=== PATIENT | female | born 1955 | race Caucasian/White ===

== ENCOUNTER 2016-05-30 11:53 | Outpatient (CLI) ==
[2016-05-30 12:54] LABS: FLU INTERNAL QC INTERNAL QC VALID; RAPID FLU A NEGATIVE (NEGATIVE); RAPID FLU B NEGATIVE (NEGATIVE)
== END 2016-05-30 11:54 | disposition home or self-care (01) ==
LOC: LAB 11:53
PROVIDERS: ATTEND Nurse Practitioner Family
DX: J02.9 Acute pharyngitis, unspecified (principal); R05 Cough
CPT/HCPCS: 87651; 87804; 87880

== ENCOUNTER 2021-05-07 11:15 | Inpatient (IN) ==
--- NOTE | 2021-05-07 12:22 | ED.PDOC ---
General ED Provider: Dr. TRICE ELLIS Chief Complaint: Weakness Stated Complaint: altered mental status confusion and disorientation Time Seen by Provider: 05/07/21 12:05 Mode of Arrival: Walk-In Information Source: Patient and Family Exam Limitations: Clinical condition and Dementia Primary Care Provider: SULMA GIRON PA-C Nursing and Triage Documentation Reviewed and Agree: Yes Does patient meet sepsis criteria?: No System Inflammatory Response Syndrome: Acutely Altered Mental Status Sepsis Protocol: For patient's 13 years and over: Temp is 96.8 and below OR 101 and greater Pulse >90 BPM Resp >20/minute Acutely Altered Mental Status Are patient's symptoms suggestive of a new infection, such as: -Pneumonia -Skin, Soft Tissue -Endocarditis -UTI -Bone, Joint Infection -Implantable Device -Acute Abdominal Infection -Wound Infection -Meningitis -Blood Stream Catheter Infection -Unknown Neurological Complaint Exam Altered Mental Status Complaint/Exam Current Mental Status: Confusion Last Known Well: yesterday Onset: Sudden Duration: 4 hrs Symptoms Are: Still present (Improving per ) Timing: Constant Episodes Lasting: Minutes Initial Severity: Moderate Current Severity: Mild Eye Deviation Present: No Character: Reports Confusion Aggravating: Reports None Alleviating: Reports None Associated Signs and Symptoms: Reports Weakness; Denies Dizziness, Headache, Fever, Illness, Nuchal rigidity, Seizure, Nausea, Vomiting, Recently depressed or Trauma Related History: Reports Similar episode Cardiac Risk Factors: Reports None CVA Risk Factors: Reports Diabetes, Hypertension, PVD and Valvular Heart Disease Carotid Bruit Present: No Nystagmus Present: No Gag Reflex Present: Yes Meningeal Signs Positive: No Focal Weakness: Present None Focal Sensory Loss: Present None Gait: Unable [id number]: Normal Findings Babinski Sign: Negative Right and Negative Left Heel to Toe Normal: Yes Signs of Injury: Present Normal findings Thrombolytics Considered: No Differential Diagnoses: Hypoxia, Intracranial Bleed, Metabolic Disorder, Overdose, Sepsis and TIA Review of Systems Review Of Systems Constitutional: Reports Malaise and Weakness Eyes: Reports No symptoms Ears, Nose, Mouth, Throat: Reports No symptoms Respiratory: Reports Cough, Short of air and Wheezing Cardiac: Reports No symptoms GI: Reports No symptoms : Reports No symptoms Musculoskeletal: Reports No symptoms Skin: Reports No symptoms Neurological: Reports Anxiety and Headache Endocrine: Reports No symptoms All Other Systems: Reviewed and Negative [facility] Medical History Abnormal x-ray Arthritis Chronic bronchitis Fall Left thigh pain Lumbar radicular pain Tobacco dependence with current use Family History SISTER No problems noted. Mother No problems noted. Other Arthritis Breast cancer Pancreatic cancer Social History (Updated 05/07/21 @ 19:07 by JYOTI JJ) Smoking and tobacco status: Current some day smoker Tobacco type: cigarettes Smoking packs per day: 0.5 Years smoked: 46 Passive smoking exposure: No Quit status: not considering quitting Second hand smoke exposure: No Alcohol intake: never Substance use type: does not use Household members: spouse Marital status: M Lives independently: Yes Number of children: 1 Number of grandchildren: 3 Highest education level completed: 10th grade halfway: No Current occupational status: retired Do you think of yourself as: straight/heterosexual Current gender identity: female Seatbelt use: always Drives intoxicated or rides with intoxicated stock driver: No Water heater temperature set < 120 degrees: Yes Working smoke detector in home: Yes Fire extinguisher in home: Yes Carbon monoxide detector in home: Yes Surgical History (Updated 05/07/21 @ 19:05 by JYOTI JJ) History of hysterectomy Status post hysterectomy Female Reproductive History Menstrual Hx Hysterectomy: Yes Physical Exam Physical Exam Appearance: Reports Ill-appearing and Thin Ill-appearing: Severe Pain Distress: Mild Eyes: Reports CARRIE, EOMI, Conjunctiva clear, Conjunctiva pale and Right pupil size (PERL_A) ENT: Reports Ears normal, Oropharynx normal and TMs Occluded Neck: Supple Respiratory: Reports Airway patent, Breath sounds clear, Breath sounds diminished and Wheezes Cardiovascular: Reports RRR and No murmur GI/: Reports Soft, Nontender and No masses Musculoskeletal: Reports Normal strength, ROM intact, No edema and No calf tenderness Skin: Reports Warm, Dry and Normal color Neurological: Reports Sensation intact, Motor intact, Reflexes intact, Cranial nerves intact, Alert and Oriented Psychiatric: Reports Affect appropriate and Mood appropriate Critical Care Note Critical Care Note Total Critical Care Time (mins): 60 Course Course Hematology/Chemistry: 05/08/21 04:43 05/08/21 04:43 Orders, Labs, Meds: Lab Review 05/07/21 05/07/21 05/07/21 13:00 13:03 13:24 WBC 20.36 H RBC 3.99 L Hgb 12.4 Hct 35.8 L MCV 89.7 MCH 31.1 H MCHC 34.6 RDW Coeff of Mejia 14.7 Plt Count 222 Immature Gran % (Auto) 0.4 Neut % (Auto) 91.4 H Lymph % (Auto) 3.[address] [place] % (Auto) 3.9 Eos % (Auto) 0.0 Baso % (Auto) 0.5 Neut # (Auto) 18.6 H Lymph # (Auto) 0.8 [facility] # (Auto) 0.8 Eos # (Auto) 0.0 Baso # (Auto) 0.1 Immature Gran # (Auto) 0.1 PT INR APTT Sodium Potassium Chloride Carbon Dioxide Anion Gap BUN Creatinine Estimated GFR (MDRD) BUN/Creatinine Ratio Glucose Lactic Acid Uric Acid Calcium Magnesium Total Bilirubin AST ALT Alkaline Phosphatase Total Creatine Kinase Troponin I Total Protein Albumin Globulin Albumin/Globulin Ratio Procalcitonin D-Dimer Urine Color Urine Clarity Urine pH Ur Specific [place] Urine Protein Urine Glucose (UA) Urine Ketones Urine Blood Urine Nitrite Urine Bilirubin Urine Urobilinogen Ur Leukocyte Esterase Urine Microscopic RBC Urine Microscopic WBC Ur Squamous Epith Cells Urine Bacteria Urine Opiates Screen Ur Oxycodone Screen Urine Methadone Screen Ur Propoxyphene Screen Ur Barbiturates Screen U Tricyclic Antidepress Ur Phencyclidine Scrn Ur Amphetamine Screen U Methamphetamines Scrn U Benzodiazepines Scrn Urine Cocaine Screen U Cannabinoids Screen Adenovirus (PCR) Not detected B. pertussis DNA (PCR) Not detected B.parapertussis DNA PCR Not detected C. pneumoniae DNA (PCR) Not detected Coronavirus OC43 (PCR) Not detected Coronavirus HKU1 (PCR) Not detected Coronavirus 229E (PCR) Not detected Coronavirus NL63 (PCR) Not detected Human Metapneumovir PCR Not detected Influenza Type A (PCR) Not detected Influ A Molecular Assay Negative by naat Influenza B (RT-PCR) Not detected Influ B Molecular Assay Negative by naat M. pneumoniae (PCR) Not detected Parainfluenza 1 (PCR) Not detected Parainfluenza 2 (PCR) Not detected Parainfluenza 3 (PCR) Not detected Parainfluenza 4 (PCR) Not detected RSV (PCR) Not detected Entero/Rhino (PCR) Not detected SARS-CoV-2 (PCR) Not detected 0305/07/21 05/07/21 13:24 13:24 13:24 WBC RBC Hgb Hct MCV MCH MCHC RDW Coeff of Mejia Plt Count Immature Gran % (Auto) Neut % (Auto) Lymph % (Auto) [facility] % (Auto) Eos % (Auto) Baso % (Auto) Neut # (Auto) Lymph # (Auto) [facility] # (Auto) Eos # (Auto) Baso # (Auto) Immature Gran # (Auto) PT 11.5 H INR 1.12 APTT 30.1 Sodium 131.8 L Potassium 3.84 Chloride 98.7 Carbon Dioxide 27.3 Anion Gap 9.64 BUN 10.3 Creatinine 0.61 Estimated GFR (MDRD) 99.00 BUN/Creatinine Ratio 16.88 Glucose 139.8 H Lactic Acid Uric Acid 3.33 Calcium 9.12 Magnesium 1.96 Total Bilirubin 0.51 AST 15.9 ALT 11.2 Alkaline Phosphatase 86.9 Total Creatine Kinase 73.9 Troponin I 0.046 Total Protein 7.06 Albumin 4.13 Globulin 2.93 Albumin/Globulin Ratio 1.40 Procalcitonin D-Dimer 1167.86 H Urine Color Urine Clarity Urine pH Ur Specific [place] Urine Protein Urine Glucose (UA) Urine Ketones Urine Blood Urine Nitrite Urine Bilirubin Urine Urobilinogen Ur Leukocyte Esterase Urine Microscopic RBC Urine Microscopic WBC Ur Squamous Epith Cells Urine Bacteria Urine Opiates Screen Ur Oxycodone Screen Urine Methadone Screen Ur Propoxyphene Screen Ur Barbiturates Screen U Tricyclic Antidepress Ur Phencyclidine Scrn Ur Amphetamine Screen U Methamphetamines Scrn U Benzodiazepines Scrn Urine Cocaine Screen U Cannabinoids Screen Adenovirus (PCR) B. pertussis DNA (PCR) B.parapertussis DNA PCR C. pneumoniae DNA (PCR) Coronavirus OC43 (PCR) Coronavirus HKU1 (PCR) Coronavirus 229E (PCR) Coronavirus NL63 (PCR) Human Metapneumovir PCR Influenza Type A (PCR) Influ A Molecular Assay Influenza B (RT-PCR) Influ B Molecular Assay M. pneumoniae (PCR) Parainfluenza 1 (PCR) Parainfluenza 2 (PCR) Parainfluenza 3 (PCR) Parainfluenza 4 (PCR) RSV (PCR) Entero/Rhino (PCR) SARS-CoV-2 (PCR) 05/07/21 05/07/21 05/07/21 13:24 13:24 14:20 WBC RBC Hgb Hct MCV MCH MCHC RDW Coeff of Mejia Plt Count Immature Gran % (Auto) Neut % (Auto) Lymph % (Auto) [facility] % (Auto) Eos % (Auto) Baso % (Auto) Neut # (Auto) Lymph # (Auto) [facility] # (Auto) Eos # (Auto) Baso # (Auto) Immature Gran # (Auto) PT INR APTT Sodium Potassium Chloride Carbon Dioxide Anion Gap BUN Creatinine Estimated GFR (MDRD) BUN/Creatinine Ratio Glucose Lactic Acid 1.25 Uric Acid Calcium Magnesium Total Bilirubin AST ALT Alkaline Phosphatase Total Creatine Kinase Troponin I Total Protein Albumin Globulin Albumin/Globulin Ratio Procalcitonin 0.35 H D-Dimer Urine Color Yellow Urine Clarity Turbid Urine pH 8.0 Ur Specific [place] 1.020 Urine Protein Negative Urine Glucose (UA) Negative Urine Ketones Negative Urine Blood Trace-intact H Urine Nitrite Negative Urine Bilirubin Negative Urine Urobilinogen 1.0 H Ur Leukocyte Esterase Trace H Urine Microscopic RBC 0-2 Urine Microscopic WBC 5-10 Ur Squamous Epith Cells Not present Urine Bacteria 4+ Urine Opiates Screen Ur Oxycodone Screen Urine Methadone Screen Ur Propoxyphene Screen Ur Barbiturates Screen U Tricyclic Antidepress Ur Phencyclidine Scrn Ur Amphetamine Screen U Methamphetamines Scrn U Benzodiazepines Scrn Urine Cocaine Screen U Cannabinoids Screen Adenovirus (PCR) B. pertussis DNA (PCR) B.parapertussis DNA PCR C. pneumoniae DNA (PCR) Coronavirus OC43 (PCR) Coronavirus HKU1 (PCR) Coronavirus 229E (PCR) Coronavirus NL63 (PCR) Human Metapneumovir PCR Influenza Type A (PCR) Influ A Molecular Assay Influenza B (RT-PCR) Influ B Molecular Assay M. pneumoniae (PCR) Parainfluenza 1 (PCR) Parainfluenza 2 (PCR) Parainfluenza 3 (PCR) Parainfluenza 4 (PCR) RSV (PCR) Entero/Rhino (PCR) SARS-CoV-2 (PCR) 05/07/21 14:20 WBC RBC Hgb Hct MCV MCH MCHC RDW Coeff of Mejia Plt Count Immature Gran % (Auto) Neut % (Auto) Lymph % (Auto) [facility] % (Auto) Eos % (Auto) Baso % (Auto) Neut # (Auto) Lymph # (Auto) [facility] # (Auto) Eos # (Auto) Baso # (Auto) Immature Gran # (Auto) PT INR APTT Sodium Potassium Chloride Carbon Dioxide Anion Gap BUN Creatinine Estimated GFR (MDRD) BUN/Creatinine Ratio Glucose Lactic Acid Uric Acid Calcium Magnesium Total Bilirubin AST ALT Alkaline Phosphatase Total Creatine Kinase Troponin I Total Protein Albumin Globulin Albumin/Globulin Ratio Procalcitonin D-Dimer Urine Color Urine Clarity Urine pH Ur Specific [place] Urine Protein Urine Glucose (UA) Urine Ketones Urine Blood Urine Nitrite Urine Bilirubin Urine Urobilinogen Ur Leukocyte Esterase Urine Microscopic RBC Urine Microscopic WBC Ur Squamous Epith Cells Urine Bacteria Urine Opiates Screen Negative Ur Oxycodone Screen Negative Urine Methadone Screen Negative Ur Propoxyphene Screen Negative Ur Barbiturates Screen Negative U Tricyclic Antidepress Negative Ur Phencyclidine Scrn Negative Ur Amphetamine Screen Negative U Methamphetamines Scrn Negative U Benzodiazepines Scrn Negative Urine Cocaine Screen Negative U Cannabinoids Screen Negative Adenovirus (PCR) B. pertussis DNA (PCR) B.parapertussis DNA PCR C. pneumoniae DNA (PCR) Coronavirus OC43 (PCR) Coronavirus HKU1 (PCR) Coronavirus 229E (PCR) Coronavirus NL63 (PCR) Human Metapneumovir PCR Influenza Type A (PCR) Influ A Molecular Assay Influenza B (RT-PCR) Influ B Molecular Assay M. pneumoniae (PCR) Parainfluenza 1 (PCR) Parainfluenza 2 (PCR) Parainfluenza 3 (PCR) Parainfluenza 4 (PCR) RSV (PCR) Entero/Rhino (PCR) SARS-CoV-2 (PCR) Orders Category Date Time Status ADMIT PATIENT INPATIENT .TO MEDSURG (MONITORED BED) ADMISSION 05/07/21 17:36 Active EKG-(ED ONLY) Stat CARDIO 05/07/21 12:54 Completed NPO REMINDER: IMAGING ONCE CARE 05/07/21 14:42 Completed TELEMETRY MONITORING TELE CARE 05/07/21 17:36 Active IV [ED IV/MEDIPORT/POWERPORT] .ONCE EMERGENCY 05/07/21 12:55 Active BLOOD CULTURE (ED ONLY) Stat LAB 05/07/21 13:24 Results CBC W/ AUTO DIFF Stat LAB 05/07/21 13:24 Completed CMP [COMPREHENSIVE METABOLIC PANEL] Stat LAB 05/07/21 13:24 Completed CPK [CREATINE KINASE] Stat LAB 05/07/21 13:24 Completed D-DIMER Stat LAB 05/07/21 13:24 Completed FLU A & B MOLECULAR [FLU A/B MOLECULAR] Stat LAB 05/07/21 13:03 Completed LACTIC ACID Stat LAB 05/07/21 13:24 Completed MAGNESIUM Stat LAB 05/07/21 13:24 Completed PARTIAL THROMBOPLASTIN TIME Stat LAB 05/07/21 13:24 Completed PROCALCITONIN Stat LAB 05/07/21 13:24 Completed PT WITH INR Stat LAB 05/07/21 13:24 Completed RESPIRATORY PANEL 2.1 (PCR) Stat LAB 05/07/21 13:00 Completed TROPONIN I Stat LAB 05/07/21 13:24 Completed UA [URINALYSIS C & S IF INDICATED] Stat LAB 05/07/21 14:20 Completed URIC ACID Stat LAB 05/07/21 13:24 Completed URINE CULTURE Stat LAB 05/07/21 14:20 Results URINE DRUG SCREEN (RAPID FOR ED) [DRUG SCREEN, URINE, LAB 05/07/21 14:20 Completed RAPID] Stat 0.9 % Sodium Chloride [Saline Flush] MEDS 05/07/21 12:55 Discontinued 1 syr IVF PRN PRN Clindamycin Phosphate/D5w [Cleocin 300 mg/50 ml D5w] MEDS 05/07/21 21:00 Discontinued 300 mg in 50 ml IV Q6HR Clindamycin Phosphate/D5w [Cleocin 600 mg/50 ml D5w] MEDS 05/07/21 16:15 Discontinued 600 mg in 50 ml IV ONCE Dexamethasone Sod Phosphate [Decadron] MEDS 05/07/21 16:15 Discontinued 4 mg IVP ONCE ONE Dexamethasone Sod Phosphate [Decadron] MEDS 05/07/21 21:00 Active 4 mg IVP Q8HR Enoxaparin Sodium [Lovenox] MEDS 05/07/21 15:42 Discontinued 60 mg SUBCUT ONCE STA Gabapentin [Neurontin] MEDS 05/07/21 21:00 Active 200 mg PO TID Levothyroxine Sodium [Synthroid] MEDS 05/07/21 18:00 Discontinued 25 mcg PO DAILY Omeprazole [Prilosec] MEDS 05/07/21 21:00 Discontinued 20 mg PO BID Potassium Chloride [K-Dur] MEDS 05/07/21 18:00 Discontinued 20 meq PO DAILY Rivaroxaban [Xarelto] MEDS 05/08/21 09:00 Active 20 mg PO DAILY Rosuvastatin Calcium [Crestor] MEDS 05/07/21 18:00 Active 10 mg PO DAILY Sodium Chloride 0.9% [Sodium Chloride] 1,000 ml MEDS 05/07/21 17:[address] CHEST PE PROTOCOL Stat RADS 05/07/21 14:[address] CHEST W/O CONTRAST Stat RADS 05/07/21 12:[address] HEAD W/O CONTRAST Stat RADS 05/07/21 12:54 Completed U/S VENOUS SCAN RT LEG Stat RADS 05/07/21 14:43 Completed Medications Generic Name Dose Route Start Last Admin Trade Name Freq PRN Reason Stop Dose Admin Acetaminophen 650 mg 05/07/21 17:56 05/07/21 19:35 Acetaminophen 325 Mg Tablet PO 650 mg Q4H PRN Administration Fever >101 Dexamethasone Sodium Phosphate 4 mg 05/07/21 21:00 05/08/21 20:16 Dexamethasone Sod Phos 4 Mg/Ml Inj IVP 05/09/21 22:00 4 mg Q8HR MAULIK Administration Gabapentin 200 mg 05/07/21 21:00 05/08/21 20:15 Gabapentin 100 Mg Capsule PO 200 mg TID MAULIK Administration Clindamycin Phosphate 600 mg in 50 mls @ 75 mls/hr 05/08/21 08:00 05/08/21 20:15 Cleocin 600 Mg/50 Ml D5w IV 05/11/21 07:59 75 mls/hr Q8HR MAULIK Administration Insulin Human Regular 0 unit 05/08/21 11:24 05/08/21 20:21 Insulin Regular, Human 100 Unit/Ml (3ml) Vial SUBCUT 4 unit PRN PRN Administration Hyperglycemia Protocol Levothyroxine Sodium 25 mcg 05/08/21 08:00 05/08/21 08:25 Levothyroxine Sodium 25 Mcg Tablet PO 25 mcg QDAC MAULIK Administration Omeprazole 20 mg 05/08/21 08:00 05/08/21 17:05 Omeprazole 20 Mg Capsule.Dr PO 20 mg BIDAC MAULIK Administration Ondansetron HCl 4 mg 05/07/21 17:56 Ondansetron Hcl/Pf 4 Mg/2 Ml Sdv IVP Q6H PRN Nausea / Vomiting Rivaroxaban 20 mg 05/08/21 09:00 05/08/21 08:27 Rivaroxaban 10 Mg Tablet PO 20 mg DAILY MAULIK Administration Rosuvastatin Calcium 10 mg 05/07/21 18:00 05/08/21 08:26 Rosuvastatin Calcium 10 Mg Tablet PO 10 mg DAILY MAULIK Administration Sodium Chloride 1 syr 05/08/21 13:00 05/08/21 20:16 0.9% Sodium Chloride 10 Ml Disp.Syrin IVF 1 syr Q8HR MAULIK Administration Discontinued Medications Generic Name Dose Route Start Last Admin Trade Name Freq PRN Reason Stop Dose Admin Dexamethasone Sodium Phosphate 4 mg 05/07/21 16:15 05/07/21 17:05 Dexamethasone Sod Phos 4 Mg/Ml Inj IVP 05/07/21 16:16 4 mg ONCE ONE Administration Enoxaparin Sodium 60 mg 05/07/21 15:42 05/07/21 15:53 Enoxaparin Sodium 60 Mg/0.6 Ml Syr SUBCUT 05/07/21 15:43 60 mg ONCE STA Administration Clindamycin Phosphate 600 mg in 50 mls @ 75 mls/hr 05/07/21 16:15 05/07/21 17:05 Cleocin 600 Mg/50 Ml D5w IV 05/07/21 16:54 75 mls/hr ONCE ONE Administration Clindamycin Phosphate 300 mg in 50 mls @ 75 mls/hr 05/07/21 21:00 05/08/21 05:40 Cleocin 300 Mg/50 Ml D5w IV 05/10/21 20:59 75 mls/hr Q6HR MAULIK Administration Sodium Chloride 1,000 mls @ 125 mls/hr 05/07/21 17:48 05/07/21 20:43 Sodium Chloride IV 05/08/21 01:47 125 mls/hr ONCE ONE Administration Levothyroxine Sodium 25 mcg 05/07/21 18:00 05/07/21 19:31 Levothyroxine Sodium 25 Mcg Tablet PO 25 mcg DAILY MAULIK Administration Omeprazole 20 mg 05/07/21 21:00 05/07/21 20:41 Omeprazole 20 Mg Capsule.Dr PO 20 mg BID MAULIK Administration Potassium Chloride 20 meq 05/07/21 18:00 05/07/21 19:31 Potassium Chloride 20 Meq Tab PO 20 meq DAILY MAULIK Administration Potassium Chloride 20 meq 05/08/21 08:30 05/08/21 08:26 Potassium Chloride 20 Meq Tab PO 20 meq DAILYWM MAULIK Administration Sodium Chloride 1 syr 05/07/21 12:55 05/07/21 17:05 0.9% Sodium Chloride 10 Ml Disp.Syrin IVF 1 syr PRN PRN Administration To flush IV Vital Signs: Temp Pulse Resp BP Pulse Ox 05/07/21 11:16 99.2 F 105 H 20 131/72 93 L Discharge Plan Discharge Patient Disposition: ADMITTED INPATIENT Discharge Problem: Cellulitis of right thigh, Acute alteration in mental status, Type II diabetes mellitus, Pulmonary embolism ED Provider: TRICE ELLIS Condition: Good Physician Progress Note: []
[2021-05-07 13:29] LABS: BORDETELLA PARAPERTUSSIS (PCR) NOT DETECTED (NOT DETECT); BORDETELLA PERTUSSIS (PCR) NOT DETECTED (NOT DETECT); CHLAMYDIA PNEUMONIAE (PCR) NOT DETECTED (NOT DETECT); CORONAVIRUS 229E (PCR) NOT DETECTED (NOT DETECT); CORONAVIRUS HKU1 (PCR) NOT DETECTED (NOT DETECT); CORONAVIRUS NL63 (PCR) NOT DETECTED (NOT DETECT); CORONAVIRUS OC43 (PCR) NOT DETECTED (NOT DETECT); HUMAN METAPNEUMOVIRUS (PCR) NOT DETECTED (NOT DETECT); HUMAN RHINOVIRUS/ENTEROV (PCR) NOT DETECTED (NOT DETECT); INFLUENZA B (PCR) NOT DETECTED (NOT DETECT); MYCOPLASMA PNEUMONIAE (PCR) NOT DETECTED (NOT DETECT); PARAINFLUENZA VIRUS 1 (PCR) NOT DETECTED (NOT DETECT); PARAINFLUENZA VIRUS 2 (PCR) NOT DETECTED (NOT DETECT); PARAINFLUENZA VIRUS 3 (PCR) NOT DETECTED (NOT DETECT); PARAINFLUENZA VIRUS 4 (PCR) NOT DETECTED (NOT DETECT); RESPIRATORY SYNCYTIAL V (PCR) NOT DETECTED (NOT DETECT); SARS_COV_2 (PCR) NOT DETECTED (NOT DETECT)
[2021-05-07 13:30] LABS: BASOPHILS # (AUTO) 0.1 K/uL (0-0.2); BASOPHILS % (AUTO) 0.5 % (0.0-3.0); HEMATOCRIT 35.8 % (37.0-47.0); HEMOGLOBIN 12.4 g/dl (12.0-16.0); IMMATURE GRANULOCYTE # (AUTO) 0.1 (0.0-1.0); IMMATURE GRANULOCYTE % (AUTO) 0.4 % (0.0-5.0); LYMPHOCYTES # (AUTO) 0.8 K/uL (0.60-3.4); LYMPHOCYTES % (AUTO) 3.8 (10.0-50.0); MEAN CORPUSCULAR HEMOGLOBIN 31.1 pg (27.0-31.0); MEAN CORPUSCULAR HGB CONC 34.6 (31.8-35.4); MEAN CORPUSCULAR VOLUME 89.7 fl (81.0-99.0); MONOCYTES # (AUTO) 0.8 K/uL (0.4-2.0); MONOCYTES % (AUTO) 3.9 (0-10); NEUTROPHILS # (AUTO) 18.6 K/ul (2.0-6.9); NEUTROPHILS % (AUTO) 91.4 % (42.2-75.2); PLATELET COUNT 222 10^3/uL (140-440); RDW COEFFICIENT OF VARIATION 14.7 % (11.6-14.8); RED BLOOD COUNT 3.99 10^6/ul (4.20-5.40); WHITE BLOOD COUNT 20.36 K/ul (4.6-10.2)
[2021-05-07 13:46] LABS: MOLECULAR FLU A NEGATIVE BY NAAT (NEGATIVE); MOLECULAR FLU B NEGATIVE BY NAAT (NEGATIVE)
[2021-05-07 13:48] LABS: ALANINE AMINOTRANSFERASE 11.2 U/L (0-35); ALBUMIN 4.13 g/dL (3.5-5.0); ALKALINE PHOSPHATASE 86.9 U/L (53-141); ASPARTATE AMINO TRANSFERASE 15.9 U/L (14-36); BILIRUBIN,TOTAL 0.51 mg/dL (0.2-1.3); BLOOD UREA NITROGEN 10.3 mg/dL (7-17); CALCIUM 9.12 mg/dL (8.4-10.2); CARBON DIOXIDE 27.3 mmol/L (22-30.0); CHLORIDE 98.7 mmol/L (98-107); CREATINE KINASE 73.9 U/L (30-135); CREATININE 0.61 mg/dL (0.60-1.30); GLUCOSE 139.8 mg/dL (74-106); MAGNESIUM 1.96 mg/dL (1.6-2.3); POTASSIUM 3.84 mmol/L (3.5-5.1); SODIUM 131.8 mmol/L (134.5-145); TOTAL PROTEIN 7.06 g/dL (6.3-8.2); URIC ACID 3.33 mg/dL (2.5-6.2)
[2021-05-07 13:58] LABS: PARTIAL THROMBOPLASTIN TIME 30.1 SEC (23.9-40.0); PROTHROMBIN TIME 11.5 SEC (9.3-11.0)
[2021-05-07 13:59] LABS: TROPONIN I 0.046 ng/ml (0.0000-0.120)
--- NOTE | 2021-05-07 14:06 | CT ---
EXAM: CT head without contrast HISTORY: Altered mental status COMPARISON: CT head 12/11/2020 TECHNIQUE: Serial axial images of the brain were obtained from the skull base to the vertex without IV contrast. FINDINGS: The ventricles, cisterns and sulci demonstrate minimal generalized volume loss. The mon- white matter junction is maintained. There is scattered low attenuation in the periventricular white matter.No midline shift or mass is identified. There is no abnormal intra or extra-axial fluid oh ection. The paranasal sinuses and mastoid air cells are clear. The osseous calvarium is intact. IMPRESSION: 1. No acute intracranial abnormality or hemorrhage. 2. Mild generalized volume loss and microangiopathy. All CT scans are performed using dose optimization techniques as appropriate to the performed exam an d include at least one of the following: Automated exposure control, adjustment of the mA and/or kV according t o size, and the use of iterative reconstruction technique.
--- NOTE | 2021-05-07 14:12 | CT ---
EXAM: CT THORAX HISTORY: Altered mental status. TECHNIQUE: CT thorax without intravenous contrast. Multiplanar images presented. COMPARISON: 02/26/2021 FINDINGS: Heart size is within normal limits. There is a small pericardial effusion which has decreased in vol ume since prior study. Mild to moderate atherosclerotic disease which also involves the coronary art eries. Limited evaluation of the mediastinum and hilar structures without the administration of intr avenous contrast agent. Suggestion of a few prominent mediastinal and hilar lymph nodes. There are several prominent bilateral axillary lymph nodes present. Probable small supraclavicular lymph nodes . Lungs are clear. No vascular congestion, pleural fluid or pneumothorax. No suspicious pulmonary opacities. The bones reveal mild to moderate degenerative changes of the spine. IMPRESSION: 1. Lungs are clear. 2. Prominent lymph nodes are nonspecific. 3. Small pericardial effusion decreased since prior study. 4. Mild to moderate atherosclerotic disease which also involves the coronary arteries. - - - - - All CT scans are performed using dose optimization techniques as appropriate to the performed exam an d include at least one of the following: Automated exposure control, adjustment of the mA and/or kV according t o size, and the use of iterative reconstruction technique.
[2021-05-07 14:18] LABS: ADENOVIRUS (PCR) NOT DETECTED (NOT DETECT)
[2021-05-07 14:23] LABS: BILIRUBIN,URINE Negative (NEGATIVE); CLARITY,URINE Turbid (CLEAR); COLOR,URINE Yellow (YELLOW); GLUCOSE, URINE (UA) Negative (NEGATIVE); KETONES,URINE Negative (NEGATIVE); LEUKOCYTE ESTERASE ,URINE Trace (NEGATIVE); NITRITE,URINE Negative (NEGATIVE); PROTEIN,URINE Negative (NEGATIVE); URINE, BLOOD Trace-intact (NEGATIVE)
[2021-05-07 14:27] LABS: BACTERIA,URINE 4+ (NOT PRESENT); SQUAMOUS EPITHELIAL CELL,UR NOT PRESENT (0-5); URINE RBC, MICROSCOPIC 0-2 (0-2)
[2021-05-07] MEDS ORDERED: LOVENOX SUBCUT STA (15:42)
--- NOTE | 2021-05-07 16:00 | US ---
EXAM: Right lower extremity venous Doppler duplex HISTORY: Concern for DVT with positive D-dimer and right lower extremity edema. COMPARISON: None TECHNIQUE: Sonographic and Doppler evaluation of the right lower extremity vessels from the common f emoral through the anterior tibial veins were obtained. Color Doppler and wave spectral evaluation w ere provided. Augmentation and compression techniques were also performed. FINDINGS: There is spontaneous Doppler flow seen in the right lower extremity veins from the common femoral through the anterior tibial veins. There is normal compression and augmentation throughout t he lower extremity veins. There is normal color Doppler and wave spectral evaluation. Soft tissues demonstrate subcutaneous edema IMPRESSION: No right lower extremity thrombus
[2021-05-07] MEDS ORDERED: DECADRON IVP ONE (16:15)
[2021-05-07] MEDS ORDERED: CLEOCIN 600 MG/50 ML D5W 600 MG/50 ML BAG IV ONE (16:15)
[2021-05-07 16:41] LABS: AMPHETAMINE SCREEN,URINE NEGATIVE (NEGATIVE); BARBITURATE SCREEN,URINE NEGATIVE (NEGATIVE); BENZODIAZEPINES SCREEN,URINE NEGATIVE (NEGATIVE); CANNABINOID SCREEN,URINE NEGATIVE (NEGATIVE); COCAIN SCREEN,URINE NEGATIVE (NEGATIVE); METHADONE URINE SCREEN NEGATIVE (NEGATIVE); METHAMPHETAMINES SCREEN,URINE NEGATIVE (NEGATIVE); OPIATE SCREEN,URINE NEGATIVE (NEGATIVE); OXYCODONE URINE SCREEN NEGATIVE (NEGATIVE); PHENCYCLIDINE SCREEN,URINE NEGATIVE (NEGATIVE); PROPOXYPHENE URINE SCREEN NEGATIVE (NEGATIVE); TRICYCLIC ANTIDEPRESSANTS URIN NEGATIVE (NEGATIVE)
--- NOTE | 2021-05-07 16:59 | CT ---
EXAM: CTA chest for PE HISTORY: Elevated D-dimer with history of prior pulmonary embolism COMPARISON: CT chest 05/07/2021 and previous PE protocol 02/26/2021 TECHNIQUE: CTA of the chest was performed from the lung apices to the upper abdomen after 100 ml of Omnipaque IV contrast was administered using PE protocol. 3-D imaging was also provided. FINDINGS: There is small persistent filling defect in the right lower lobe subsegmental pulmonary ar teries. No additional filling defect is identified. Heart is normal in size without pericardial flu id. There is atherosclerotic disease of the aorta. There is no lymphadenopathy. There is no pneumothorax or effusion. There is emphysema. There is no consolidation, nodule or mass . The airways are patent. Limited views of the soft tissues in the upper abdomen are unremarkable. There is degenerative disea se of the spine. IMPRESSION: 1. Filling defect in the right lower lobe subsegmental pulmonary arteries. This is minimally change d from previous evaluation with no infarct or heart strain is identified. 2. Unchanged mild emphysema. All CT scans are performed using dose optimization techniques as appropriate to the performed exam an d include at least one of the following: Automated exposure control, adjustment of the mA and/or kV according t o size, and the use of iterative reconstruction technique.
[2021-05-07] MEDS ORDERED: SODIUM CHLORIDE 1,000 ML IV ONE (17:48)
[2021-05-07] MEDS ORDERED: ZOFRAN 4 MG/2 ML IVP PRN (17:56)
[2021-05-07] MEDS ORDERED: SYNTHROID PO SCH (18:00)
[2021-05-07] MEDS ORDERED: K-DUR PO SCH (18:00)
[2021-05-07] MEDS: CRESTOR PO SCH (19:31)
[2021-05-07] MEDS: TYLENOL PO PRN (19:35)
[2021-05-07 19:55] VITALS: BMI 22.0
[2021-05-07] MEDS: CLEOCIN 300 MG/50 ML D5W 300 MG/50 ML BAG IV SCH (20:29)
[2021-05-07] MEDS: NEURONTIN PO SCH (20:40)
[2021-05-07] MEDS ORDERED: PRILOSEC PO SCH (21:00)
[2021-05-07] MEDS: DECADRON IVP SCH (21:29)
[2021-05-08] MEDS: CLEOCIN 300 MG/50 ML D5W 300 MG/50 ML BAG IV SCH ×2 (00:57→05:40)
[2021-05-08 05:21] LABS: BASOPHILS # (AUTO) 0.1 K/uL (0-0.2); BASOPHILS % (AUTO) 0.3 % (0.0-3.0); HEMATOCRIT 39.5 % (37.0-47.0); HEMOGLOBIN 13.2 g/dl (12.0-16.0); IMMATURE GRANULOCYTE # (AUTO) 0.1 (0.0-1.0); IMMATURE GRANULOCYTE % (AUTO) 0.4 % (0.0-5.0); LYMPHOCYTES # (AUTO) 0.7 K/uL (0.60-3.4); LYMPHOCYTES % (AUTO) 4.8 (10.0-50.0); MEAN CORPUSCULAR HEMOGLOBIN 30.1 pg (27.0-31.0); MEAN CORPUSCULAR HGB CONC 33.4 (31.8-35.4); MONOCYTES # (AUTO) 0.4 K/uL (0.4-2.0); MONOCYTES % (AUTO) 2.6 (0-10); NEUTROPHILS # (AUTO) 14.1 K/ul (2.0-6.9); NEUTROPHILS % (AUTO) 91.9 % (42.2-75.2); PLATELET COUNT 253 10^3/uL (140-440); RDW COEFFICIENT OF VARIATION 14.7 % (11.6-14.8); RED BLOOD COUNT 4.39 10^6/ul (4.20-5.40); WHITE BLOOD COUNT 15.39 K/ul (4.6-10.2)
[2021-05-08 05:32] LABS: ALANINE AMINOTRANSFERASE 10.5 U/L (0-35); ALBUMIN 4.25 g/dL (3.5-5.0); ALKALINE PHOSPHATASE 96.5 U/L (53-141); ASPARTATE AMINO TRANSFERASE 21.1 U/L (14-36); BILIRUBIN,TOTAL 0.44 mg/dL (0.2-1.3); BLOOD UREA NITROGEN 11.5 mg/dL (7-17); CALCIUM 9.7 mg/dL (8.4-10.2); CARBON DIOXIDE 23.6 mmol/L (22-30.0); CHLORIDE 101.9 mmol/L (98-107); CREATININE 0.61 mg/dL (0.60-1.30); GLUCOSE 134.9 mg/dL (74-106); POTASSIUM 3.88 mmol/L (3.5-5.1); SODIUM 136.3 mmol/L (134.5-145); TOTAL PROTEIN 7.68 g/dL (6.3-8.2)
[2021-05-08] MEDS: DECADRON IVP SCH ×3 (05:48→20:16)
[2021-05-08] MEDS: PRILOSEC PO SCH ×2 (08:25→17:05)
[2021-05-08] MEDS: SYNTHROID PO SCH (08:25)
[2021-05-08] MEDS: CRESTOR PO SCH (08:26)
[2021-05-08] MEDS: NEURONTIN PO SCH ×3 (08:26→20:15)
[2021-05-08] MEDS: CLEOCIN 600 MG/50 ML D5W 600 MG/50 ML BAG IV SCH ×3 (08:26→20:15)
[2021-05-08] MEDS: XARELTO PO SCH (08:27)
[2021-05-08] MEDS ORDERED: K-DUR PO SCH (08:30)
[2021-05-08] MEDS: HUMULIN R SUBCUT PRN ×3 (12:02→20:21)
--- NOTE | 2021-05-08 15:57 | PCM.PROG ---
Date Seen by Provider: 05/08/21 Time Seen by Provider: 11:00 Subjective: Patient feeling better though still with right thigh pain. Objective: Vitals: T=97.9 F, P=86, R=18, NJ=004/61, SPO2=99 Patient alert and in NAD. Temperature curve trending downward. HEENT: [] Neck: [] Lungs: [] CVS: [] Abdomen: [] Extremities: []Medial right thigh with moderately extensive erythema. Affected area with some tenderness. No crepitance. Neurological: [] Skin: [] Lab/Tests/Diagnostic Imaging: [] (1) Cellulitis of right thigh: Status: Acute Code(s): L03.115 - Cellulitis of right lower limb SNOMED Code(s): 74123164066952165 Assessment: Cellulitis appears to be responding to clindamycin. Plan: Continue present care.
[2021-05-09] MEDS: DECADRON IVP SCH ×3 (04:57→20:13)
[2021-05-09] MEDS: CLEOCIN 600 MG/50 ML D5W 600 MG/50 ML BAG IV SCH ×4 (04:57→21:32)
[2021-05-09 05:20] LABS: BASOPHILS % (AUTO) 0.1 % (0.0-3.0); HEMATOCRIT 35.3 % (37.0-47.0); IMMATURE GRANULOCYTE % (AUTO) 0.4 % (0.0-5.0); LYMPHOCYTES # (AUTO) 1.2 K/uL (0.60-3.4); LYMPHOCYTES % (AUTO) 10.8 (10.0-50.0); MEAN CORPUSCULAR HEMOGLOBIN 30.2 pg (27.0-31.0); MEAN CORPUSCULAR VOLUME 88.9 fl (81.0-99.0); MONOCYTES # (AUTO) 0.7 K/uL (0.4-2.0); MONOCYTES % (AUTO) 6.3 (0-10); NEUTROPHILS # (AUTO) 9.4 K/ul (2.0-6.9); NEUTROPHILS % (AUTO) 82.4 % (42.2-75.2); PLATELET COUNT 257 10^3/uL (140-440); RDW COEFFICIENT OF VARIATION 14.6 % (11.6-14.8); RED BLOOD COUNT 3.97 10^6/ul (4.20-5.40); WHITE BLOOD COUNT 11.33 K/ul (4.6-10.2)
[2021-05-09 05:32] LABS: ALBUMIN 3.82 g/dL (3.5-5.0); ALKALINE PHOSPHATASE 76.1 U/L (53-141); ASPARTATE AMINO TRANSFERASE 15.9 U/L (14-36); BILIRUBIN,TOTAL 0.32 mg/dL (0.2-1.3); BLOOD UREA NITROGEN 16.7 mg/dL (7-17); CALCIUM 9.12 mg/dL (8.4-10.2); CARBON DIOXIDE 23.1 mmol/L (22-30.0); CHLORIDE 102.9 mmol/L (98-107); CREATININE 0.6 mg/dL (0.60-1.30); GLUCOSE 181.9 mg/dL (74-106); POTASSIUM 4.11 mmol/L (3.5-5.1); SODIUM 135.1 mmol/L (134.5-145); TOTAL PROTEIN 6.9 g/dL (6.3-8.2)
[2021-05-09] MEDS: HUMULIN R SUBCUT PRN ×4 (05:58→20:10)
[2021-05-09] MEDS: PRILOSEC PO SCH ×2 (06:01→16:10)
[2021-05-09] MEDS: SYNTHROID PO SCH (06:01)
[2021-05-09] MEDS: CRESTOR PO SCH (08:57)
[2021-05-09] MEDS: NEURONTIN PO SCH ×3 (08:57→20:09)
[2021-05-09] MEDS: XARELTO PO SCH (08:58)
--- NOTE | 2021-05-09 12:16 | RS.PTINEVL ---
Subjective - Patient information Date of Evaluation: 05/09/21 Diagnosis: cellulitis right leg, weakness Usual Living Arrangement: With Spouse Medical History Comments:: PE, Arthritis, chronic bronchitis, Lumb radiculopathy, Hx falls, Type 2 Diabetes, peripheral neuropathy Surgical History: Hysterectomy Subjective Information/ Patient Comments:: Patient states she would like to sit up in the chair so she can get out of bed. States she has not been out of bed since she's been in the hospital. States she uses a cane or walker when she walks at home, and help from her . States she uses a wheelchair for most mobility in the home. States her helps her get in and out of bed. States the right LE hurts and it does not feel like it will move. She gets emotional discussing her daughter and grandchildren and states they are moving to [place] to be near them. - Level of function Abilities prior to this admission: Level of function prior to this admission is unclear. Charting documents that the spouse helps her with mobility, but how much assistance was required in unclear. Current Level of Function: Partially Dependent Current Equipment Used at Home: cane, walker, glasses Pain Assessement - Location Right Medial Thigh Pain Behavior: Guarding, Facial Grimacing Interventions - Objective Patient Orientation: Person, Place Current Interventions: Telemetry Observation: Right inner thigh is red. Right foot and ankle are swollen. Range of Motion - ROM Right Upper Extremity AROM: WFL's Left Upper Extremity AROM: WFL's Right Lower Extremity AROM: Moderate limitation (limited ROM at ankle/foot due to swelling) Left Lower Extremity AROM: WFL's Muscle Strength - Muscle Strength Comments:: Patient does not understand to allow MMT, but demonstrates at least 3-/5 of right LE. Left LE at least 4/5. Sensation - Sensation Comments: Pt reports impaired sensation of both feet, can detect cold hands of PT Balance - Sitting Balance and Reactions Static Sitting Balance: Fair Dynamic Sitting Balance: Fair - Standing Balance and Reactions Static Standing Balance: Poor Dynamic Standing Balance: Poor Functional Mobility - Bed Mobility Supine to Sit: Mod Assist, 1 person assist, Verbal Cues, Tactile Cues Comments:: Patient needs continuous verbal and tactile cues to move legs towards edge of bed and come to sit on edge. - Transfers Sit to Stand: Mod Assist, 1 person assist, Verbal Cues, Tactile Cues Stand to Sit: Mod Assist, 1 person assist, Verbal Cues, Tactile Cues Stand Pivot Transfers: Mod Assist, 1 person assist, Verbal Cues, Tactile Cues Comments:: Patient requires continuous verbal and tactile cues to get feet on the floor and try to stand. She continues to scoot herself further off the bed to the point that vc's had to be given to stop scooting or she would scoot off into the floor. Pt stood at the walker with mod assist. Required mod assist to turn the walker and continue with VC's to move her feet towards the chair. Pt plops into chair as soon as she felt she could reach it, without following VC's to turn around completely before sitting down. - Safety Awareness Safety Awareness: Poor LUIS INDEX SCORE: NA Treatment time - Time with patient Length of Evaluation: 15 mins Total treatment time: 18 Assessment - Assessment Problem List:: Decreased level of function, Requires training/education, Decreased safety/Risk of falls, Weakness, Pain limits previous level of function, Cognitive status limits abilities Rehab Potential: Good Further Therapy Indicated?: Yes Candidate for Swing Bed for Therapy Services?: No Comments: Nursing agreed for patient to sit up in chair. Patient is at HIGH risk for falls. Evaluation Complexity: HISTORY: Medium, EXAM OF BODY SYSTEMS: Medium, CLINICAL PRESENTATION: Medium, CLINICAL DECISION MAKING: Medium Patient's Goal(s): Her goal is to return home. Short Term Goals GOAL #1: Sit to supine with Min of 1 and vc's. Goal to be met by: 05/11/21 GOAL #2: Sit to stand up to walker with min of 1 and vc's. Goal to be met by: 05/11/21 GOAL #3: Pt to transfer to bedside chair with RW with min of 1 and verbal cues. Goal to be met by: 05/11/21 [facility] Goals GOAL #1: All bed mobility with CGA-Min of 1. Goal to be met by: 05/12/21 GOAL #2: Sit <> stand transfers with min A of 1. Goal to be met by: 05/12/21 GOAL #3: Bed <> chair transfers with RW with CGA -min A of 1. Goal to be met by: 05/12/21 Plan Plan of Care: Therapeutic EX, Therapeutic Activity, Self-Care/Home Management Frequency of Treatment: 1-2 X day, as tolerated Duration of Treatment: 2-3 days Anticipated Discharge Destination: Home Treatment Diagnosis (ICD 10 Codes): M62.81 weakness, Z74.0 reduced mobility Has the Physician been added for Co-signature?: Yes
[2021-05-09] MEDS ORDERED: MAXIPIME 1 GM VIAL 1 GM in SODIUM CHLORIDE 50 ML IV SCH (15:30)
[2021-05-09] MEDS: ROCEPHIN 1 GM/50 ML D5W 1 GM/50 ML BAG IV SCH (17:15)
[2021-05-09] MEDS ORDERED: CLEOCIN 300 MG/50 ML D5W 300 MG/50 ML BAG IV SCH (18:00)
[2021-05-10 05:13] LABS: BASOPHILS % (AUTO) 0.1 % (0.0-3.0); HEMATOCRIT 36.9 % (37.0-47.0); HEMOGLOBIN 12.2 g/dl (12.0-16.0); IMMATURE GRANULOCYTE % (AUTO) 0.3 % (0.0-5.0); LYMPHOCYTES # (AUTO) 1.6 K/uL (0.60-3.4); LYMPHOCYTES % (AUTO) 15.7 (10.0-50.0); MEAN CORPUSCULAR HEMOGLOBIN 29.8 pg (27.0-31.0); MEAN CORPUSCULAR HGB CONC 33.1 (31.8-35.4); MEAN CORPUSCULAR VOLUME 90.2 fl (81.0-99.0); MONOCYTES # (AUTO) 0.8 K/uL (0.4-2.0); MONOCYTES % (AUTO) 7.6 (0-10); NEUTROPHILS # (AUTO) 7.6 K/ul (2.0-6.9); NEUTROPHILS % (AUTO) 76.3 % (42.2-75.2); PLATELET COUNT 287 10^3/uL (140-440); RDW COEFFICIENT OF VARIATION 14.7 % (11.6-14.8); RED BLOOD COUNT 4.09 10^6/ul (4.20-5.40); WHITE BLOOD COUNT 9.93 K/ul (4.6-10.2)
[2021-05-10 05:26] LABS: ALANINE AMINOTRANSFERASE 12.3 U/L (0-35); ALBUMIN 3.94 g/dL (3.5-5.0); ALKALINE PHOSPHATASE 68.5 U/L (53-141); ASPARTATE AMINO TRANSFERASE 14.7 U/L (14-36); BILIRUBIN,TOTAL 0.28 mg/dL (0.2-1.3); BLOOD UREA NITROGEN 18.2 mg/dL (7-17); CALCIUM 8.92 mg/dL (8.4-10.2); CARBON DIOXIDE 24.1 mmol/L (22-30.0); CHLORIDE 101.5 mmol/L (98-107); CREATININE 0.66 mg/dL (0.60-1.30); GLUCOSE 171.9 mg/dL (74-106); POTASSIUM 3.89 mmol/L (3.5-5.1); SODIUM 133.5 mmol/L (134.5-145); TOTAL PROTEIN 6.84 g/dL (6.3-8.2)
[2021-05-10] MEDS: HUMULIN R SUBCUT PRN ×2 (05:39→17:11)
[2021-05-10] MEDS: SYNTHROID PO SCH (05:39)
[2021-05-10] MEDS: CLEOCIN 600 MG/50 ML D5W 600 MG/50 ML BAG IV SCH ×3 (05:39→20:51)
[2021-05-10] MEDS: PRILOSEC PO SCH ×2 (05:39→16:05)
[2021-05-10] MEDS: DECADRON IVP SCH ×2 (08:58→20:50)
[2021-05-10] MEDS: NEURONTIN PO SCH ×3 (09:01→20:51)
[2021-05-10] MEDS: CRESTOR PO SCH (09:01)
[2021-05-10] MEDS: ROCEPHIN 1 GM/50 ML D5W 1 GM/50 ML BAG IV SCH (09:01)
[2021-05-10] MEDS: XARELTO PO SCH (09:02)
[2021-05-10] MEDS: TYLENOL PO PRN (13:23)
[2021-05-11] MEDS: TYLENOL PO PRN (03:11)
[2021-05-11] MEDS: CLEOCIN 600 MG/50 ML D5W 600 MG/50 ML BAG IV SCH ×3 (05:05→20:11)
[2021-05-11] MEDS: SYNTHROID PO SCH (05:42)
[2021-05-11] MEDS: PRILOSEC PO SCH ×2 (05:43→16:56)
[2021-05-11] MEDS: HUMULIN R SUBCUT PRN ×4 (05:58→21:54)
[2021-05-11] MEDS: NEURONTIN PO SCH ×3 (08:58→20:11)
[2021-05-11] MEDS: CRESTOR PO SCH (08:58)
[2021-05-11] MEDS: ROCEPHIN 1 GM/50 ML D5W 1 GM/50 ML BAG IV SCH (08:59)
[2021-05-11] MEDS: XARELTO PO SCH (08:59)
[2021-05-11] MEDS: DECADRON IVP SCH ×2 (09:00→20:11)
--- NOTE | 2021-05-11 10:01 | ED.PDOC ---
General ED Provider: Dr. TRICE ELLIS Chief Complaint: Weakness Stated Complaint: Chest tightness Time Seen by Provider: 05/07/21 12:05 Mode of Arrival: Walk-In Information Source: Patient and Family Exam Limitations: No limitations Primary Care Provider: SULMA GIRON PA-C Nursing and Triage Documentation Reviewed and Agree: Yes Sepsis Protocol: For patient's 13 years and over: Temp is 96.8 and below OR 101 and greater Pulse >90 BPM Resp >20/minute Acutely Altered Mental Status Are patient's symptoms suggestive of a new infection, such as: -Pneumonia -Skin, Soft Tissue -Endocarditis -UTI -Bone, Joint Infection -Implantable Device -Acute Abdominal Infection -Wound Infection -Meningitis -Blood Stream Catheter Infection -Unknown [facility] Medical History Abnormal x-ray Arthritis Chronic bronchitis Fall Left thigh pain Lumbar radicular pain Tobacco dependence with current use Family History SISTER No problems noted. Mother No problems noted. Other Arthritis Breast cancer Pancreatic cancer Social History (Updated 05/07/21 @ 19:07 by JYOTI JJ) Smoking and tobacco status: Current some day smoker Tobacco type: cigarettes Smoking packs per day: 0.5 Years smoked: 46 Passive smoking exposure: No Quit status: not considering quitting Second hand smoke exposure: No Alcohol intake: never Substance use type: does not use Household members: spouse Marital status: M Lives independently: Yes Number of children: 1 Number of grandchildren: 3 Highest education level completed: 10th grade FPC: No Current occupational status: retired Do you think of yourself as: straight/heterosexual Current gender identity: female Seatbelt use: always Drives intoxicated or rides with intoxicated cdl driver: No Water heater temperature set < 120 degrees: Yes Working smoke detector in home: Yes Fire extinguisher in home: Yes Carbon monoxide detector in home: Yes Surgical History (Updated 05/07/21 @ 19:05 by JYOTI JJ) History of hysterectomy Status post hysterectomy Female Reproductive History Menstrual control method: none Hx Hysterectomy: Yes Menopause type: natural Interpretation Radiology Interpretation Exam Interpreted: CT Scan (. Filling defect in the right lower lobe subsegmental pulmonary arteries. This is minimally changed from previous evaluation with no infarct or heart strain is identified. 2. Unchanged mild emphysema) Course Course Hematology/Chemistry: 05/10/21 04:49 05/10/21 04:49 Orders, Labs, Meds: Lab Review 05/07/21 05/07/21 05/07/21 13:00 13:03 13:24 WBC 20.36 H RBC 3.99 L Hgb 12.4 Hct 35.8 L MCV 89.7 MCH 31.1 H MCHC 34.6 RDW Coeff of Mejia 14.7 Plt Count 222 Immature Gran % (Auto) 0.4 Neut % (Auto) 91.4 H Lymph % (Auto) 3.8 L [place] % (Auto) 3.9 Eos % (Auto) 0.0 Baso % (Auto) 0.5 Neut # (Auto) 18.6 H Lymph # (Auto) 0.8 [place] # (Auto) 0.8 Eos # (Auto) 0.0 Baso # (Auto) 0.1 Immature Gran # (Auto) 0.1 PT INR APTT Sodium Potassium Chloride Carbon Dioxide Anion Gap BUN Creatinine Estimated GFR (MDRD) BUN/Creatinine Ratio Glucose Lactic Acid Uric Acid Calcium Magnesium Total Bilirubin AST ALT Alkaline Phosphatase Total Creatine Kinase Troponin I Total Protein Albumin Globulin Albumin/Globulin Ratio Procalcitonin D-Dimer Urine Color Urine Clarity Urine pH Ur Specific [place] Urine Protein Urine Glucose (UA) Urine Ketones Urine Blood Urine Nitrite Urine Bilirubin Urine Urobilinogen Ur Leukocyte Esterase Urine Microscopic RBC Urine Microscopic WBC Ur Squamous Epith Cells Urine Bacteria Urine Opiates Screen Ur Oxycodone Screen Urine Methadone Screen Ur Propoxyphene Screen Ur Barbiturates Screen U Tricyclic Antidepress Ur Phencyclidine Scrn Ur Amphetamine Screen U Methamphetamines Scrn U Benzodiazepines Scrn Urine Cocaine Screen U Cannabinoids Screen Adenovirus (PCR) Not detected B. pertussis DNA (PCR) Not detected B.parapertussis DNA PCR Not detected C. pneumoniae DNA (PCR) Not detected Coronavirus OC43 (PCR) Not detected Coronavirus HKU1 (PCR) Not detected Coronavirus 229E (PCR) Not detected Coronavirus NL63 (PCR) Not detected Human Metapneumovir PCR Not detected Influenza Type A (PCR) Not detected Influ A Molecular Assay Negative by naat Influenza B (RT-PCR) Not detected Influ B Molecular Assay Negative by naat M. pneumoniae (PCR) Not detected Parainfluenza 1 (PCR) Not detected Parainfluenza 2 (PCR) Not detected Parainfluenza 3 (PCR) Not detected Parainfluenza 4 (PCR) Not detected RSV (PCR) Not detected Entero/Rhino (PCR) Not detected SARS-CoV-2 (PCR) Not detected 05/07/21 05/07/21 05/07/21 13:24 13:24 13:24 WBC RBC Hgb Hct MCV MCH MCHC RDW Coeff of Mejia Plt Count Immature Gran % (Auto) Neut % (Auto) Lymph % (Auto) [place] % (Auto) Eos % (Auto) Baso % (Auto) Neut # (Auto) Lymph # (Auto) [place] # (Auto) Eos # (Auto) Baso # (Auto) Immature Gran # (Auto) PT 11.5 H INR 1.12 APTT 30.1 Sodium 131.8 L Potassium 3.84 Chloride 98.7 Carbon Dioxide 27.3 Anion Gap 9.64 BUN 10.3 Creatinine 0.61 Estimated GFR (MDRD) 99.00 BUN/Creatinine Ratio 16.88 Glucose 139.8 H Lactic Acid Uric Acid 3.33 Calcium 9.12 Magnesium 1.96 Total Bilirubin 0.51 AST 15.9 ALT 11.2 Alkaline Phosphatase 86.9 Total Creatine Kinase 73.9 Troponin I 0.046 Total Protein 7.06 Albumin 4.13 Globulin 2.93 Albumin/Globulin Ratio 1.40 Procalcitonin D-Dimer 1167.86 H Urine Color Urine Clarity Urine pH Ur Specific [place] Urine Protein Urine Glucose (UA) Urine Ketones Urine Blood Urine Nitrite Urine Bilirubin Urine Urobilinogen Ur Leukocyte Esterase Urine Microscopic RBC Urine Microscopic WBC Ur Squamous Epith Cells Urine Bacteria Urine Opiates Screen Ur Oxycodone Screen Urine Methadone Screen Ur Propoxyphene Screen Ur Barbiturates Screen U Tricyclic Antidepress Ur Phencyclidine Scrn Ur Amphetamine Screen U Methamphetamines Scrn U Benzodiazepines Scrn Urine Cocaine Screen U Cannabinoids Screen Adenovirus (PCR) B. pertussis DNA (PCR) B.parapertussis DNA PCR C. pneumoniae DNA (PCR) Coronavirus OC43 (PCR) Coronavirus HKU1 (PCR) Coronavirus 229E (PCR) Coronavirus NL63 (PCR) Human Metapneumovir PCR Influenza Type A (PCR) Influ A Molecular Assay Influenza B (RT-PCR) Influ B Molecular Assay M. pneumoniae (PCR) Parainfluenza 1 (PCR) Parainfluenza 2 (PCR) Parainfluenza 3 (PCR) Parainfluenza 4 (PCR) RSV (PCR) Entero/Rhino (PCR) SARS-CoV-2 (PCR) 05/07/21 05/07/21 05/07/21 13:24 13:24 14:20 WBC RBC Hgb Hct MCV MCH MCHC RDW Coeff of Mejia Plt Count Immature Gran % (Auto) Neut % (Auto) Lymph % (Auto) [place] % (Auto) Eos % (Auto) Baso % (Auto) Neut # (Auto) Lymph # (Auto) [place] # (Auto) Eos # (Auto) Baso # (Auto) Immature Gran # (Auto) PT INR APTT Sodium Potassium Chloride Carbon Dioxide Anion Gap BUN Creatinine Estimated GFR (MDRD) BUN/Creatinine Ratio Glucose Lactic Acid 1.25 Uric Acid Calcium Magnesium Total Bilirubin AST ALT Alkaline Phosphatase Total Creatine Kinase Troponin I Total Protein Albumin Globulin Albumin/Globulin Ratio Procalcitonin 0.35 H D-Dimer Urine Color Yellow Urine Clarity Turbid Urine pH 8.0 Ur Specific [place] 1.020 Urine Protein Negative Urine Glucose (UA) Negative Urine Ketones Negative Urine Blood Trace-intact H Urine Nitrite Negative Urine Bilirubin Negative Urine Urobilinogen 1.0 H Ur Leukocyte Esterase Trace H Urine Microscopic RBC 0-2 Urine Microscopic WBC 5-10 Ur Squamous Epith Cells Not present Urine Bacteria 4+ Urine Opiates Screen Ur Oxycodone Screen Urine Methadone Screen Ur Propoxyphene Screen Ur Barbiturates Screen U Tricyclic Antidepress Ur Phencyclidine Scrn Ur Amphetamine Screen U Methamphetamines Scrn U Benzodiazepines Scrn Urine Cocaine Screen U Cannabinoids Screen Adenovirus (PCR) B. pertussis DNA (PCR) B.parapertussis DNA PCR C. pneumoniae DNA (PCR) Coronavirus OC43 (PCR) Coronavirus HKU1 (PCR) Coronavirus 229E (PCR) Coronavirus NL63 (PCR) Human Metapneumovir PCR Influenza Type A (PCR) Influ A Molecular Assay Influenza B (RT-PCR) Influ B Molecular Assay M. pneumoniae (PCR) Parainfluenza 1 (PCR) Parainfluenza 2 (PCR) Parainfluenza 3 (PCR) Parainfluenza 4 (PCR) RSV (PCR) Entero/Rhino (PCR) SARS-CoV-2 (PCR) 05/07/21 14:20 WBC RBC Hgb Hct MCV MCH MCHC RDW Coeff of Mejia Plt Count Immature Gran % (Auto) Neut % (Auto) Lymph % (Auto) [place] % (Auto) Eos % (Auto) Baso % (Auto) Neut # (Auto) Lymph # (Auto) [place] # (Auto) Eos # (Auto) Baso # (Auto) Immature Gran # (Auto) PT INR APTT Sodium Potassium Chloride Carbon Dioxide Anion Gap BUN Creatinine Estimated GFR (MDRD) BUN/Creatinine Ratio Glucose Lactic Acid Uric Acid Calcium Magnesium Total Bilirubin AST ALT Alkaline Phosphatase Total Creatine Kinase Troponin I Total Protein Albumin Globulin Albumin/Globulin Ratio Procalcitonin D-Dimer Urine Color Urine Clarity Urine pH Ur Specific [place] Urine Protein Urine Glucose (UA) Urine Ketones Urine Blood Urine Nitrite Urine Bilirubin Urine Urobilinogen Ur Leukocyte Esterase Urine Microscopic RBC Urine Microscopic WBC Ur Squamous Epith Cells Urine Bacteria Urine Opiates Screen Negative Ur Oxycodone Screen Negative Urine Methadone Screen Negative Ur Propoxyphene Screen Negative Ur Barbiturates Screen Negative U Tricyclic Antidepress Negative Ur Phencyclidine Scrn Negative Ur Amphetamine Screen Negative U Methamphetamines Scrn Negative U Benzodiazepines Scrn Negative Urine Cocaine Screen Negative U Cannabinoids Screen Negative Adenovirus (PCR) B. pertussis DNA (PCR) B.parapertussis DNA PCR C. pneumoniae DNA (PCR) Coronavirus OC43 (PCR) Coronavirus HKU1 (PCR) Coronavirus 229E (PCR) Coronavirus NL63 (PCR) Human Metapneumovir PCR Influenza Type A (PCR) Influ A Molecular Assay Influenza B (RT-PCR) Influ B Molecular Assay M. pneumoniae (PCR) Parainfluenza 1 (PCR) Parainfluenza 2 (PCR) Parainfluenza 3 (PCR) Parainfluenza 4 (PCR) RSV (PCR) Entero/Rhino (PCR) SARS-CoV-2 (PCR) Orders Category Date Time Status ADMIT PATIENT INPATIENT .TO MEDSURG (MONITORED BED) ADMISSION 05/07/21 17:36 Active EKG-(ED ONLY) Stat CARDIO 05/07/21 12:54 Completed NPO REMINDER: IMAGING ONCE CARE 05/07/21 14:42 Completed TELEMETRY MONITORING TELE CARE 05/07/21 17:36 Active IV [ED IV/MEDIPORT/POWERPORT] .ONCE EMERGENCY 05/07/21 12:55 Active BLOOD CULTURE (ED ONLY) Stat LAB 05/07/21 13:24 Results CBC W/ AUTO DIFF Stat LAB 05/07/21 13:24 Completed CMP [COMPREHENSIVE METABOLIC PANEL] Stat LAB 05/07/21 13:24 Completed CPK [CREATINE KINASE] Stat LAB 05/07/21 13:24 Completed D-DIMER Stat LAB 05/07/21 13:24 Completed FLU A & B MOLECULAR [FLU A/B MOLECULAR] Stat LAB 05/07/21 13:03 Completed LACTIC ACID Stat LAB 05/07/21 13:24 Completed MAGNESIUM Stat LAB 05/07/21 13:24 Completed PARTIAL THROMBOPLASTIN TIME Stat LAB 05/07/21 13:24 Completed PROCALCITONIN Stat LAB 05/07/21 13:24 Completed PT WITH INR Stat LAB 05/07/21 13:24 Completed RESPIRATORY PANEL 2.1 (PCR) Stat LAB 05/07/21 13:00 Completed TROPONIN I Stat LAB 05/07/21 13:24 Completed UA [URINALYSIS C & S IF INDICATED] Stat LAB 05/07/21 14:20 Completed URIC ACID Stat LAB 05/07/21 13:24 Completed URINE CULTURE Stat LAB 05/07/21 14:20 Completed URINE DRUG SCREEN (RAPID FOR ED) [DRUG SCREEN, URINE, LAB 05/07/21 14:20 Completed RAPID] Stat 0.9 % Sodium Chloride [Saline Flush] MEDS 05/07/21 12:55 Discontinued 1 syr IVF PRN PRN Clindamycin Phosphate/D5w [Cleocin 300 mg/50 ml D5w] MEDS 05/07/21 21:00 Discontinued 300 mg in 50 ml IV Q6HR Clindamycin Phosphate/D5w [Cleocin 600 mg/50 ml D5w] MEDS 05/07/21 16:15 Discontinued 600 mg in 50 ml IV ONCE Dexamethasone Sod Phosphate [Decadron] MEDS 05/07/21 16:15 Discontinued 4 mg IVP ONCE ONE Dexamethasone Sod Phosphate [Decadron] MEDS 05/07/21 21:00 Discontinued 4 mg IVP Q8HR Enoxaparin Sodium [Lovenox] MEDS 05/07/21 15:42 Discontinued 60 mg SUBCUT ONCE STA Gabapentin [Neurontin] MEDS 05/07/21 21:00 Active 200 mg PO TID Levothyroxine Sodium [Synthroid] MEDS 05/07/21 18:00 Discontinued 25 mcg PO DAILY Omeprazole [Prilosec] MEDS 05/07/21 21:00 Discontinued 20 mg PO BID Potassium Chloride [K-Dur] MEDS 05/07/21 18:00 Discontinued 20 meq PO DAILY Rivaroxaban [Xarelto] MEDS 05/08/21 09:00 Active 20 mg PO DAILY Rosuvastatin Calcium [Crestor] MEDS 05/07/21 18:00 Active 10 mg PO DAILY Sodium Chloride 0.9% [Sodium Chloride] 1,000 ml MEDS 05/07/21 17:[address] CHEST PE PROTOCOL Stat RADS 05/07/21 14:[address] CHEST W/O CONTRAST Stat RADS 05/07/21 12:[address] HEAD W/O CONTRAST Stat RADS 05/07/21 12:54 Completed U/S VENOUS SCAN RT LEG Stat RADS 05/07/21 14:43 Completed Medications Generic Name Dose Route Start Last Admin Trade Name Freq PRN Reason Stop Dose Admin Acetaminophen 650 mg 05/07/21 17:56 05/11/21 03:11 Acetaminophen 325 Mg Tablet PO 650 mg Q4H PRN Administration Fever >101 Dexamethasone Sodium Phosphate 4 mg 05/09/21 21:00 05/11/21 09:00 Dexamethasone Sod Phos 4 Mg/Ml Inj IVP 4 mg Q12HR MAULIK Administration Gabapentin 200 mg 05/07/21 21:00 05/11/21 08:58 Gabapentin 100 Mg Capsule PO 200 mg TID MAULIK Administration Clindamycin Phosphate 600 mg in 50 mls @ 75 mls/hr 05/09/21 16:30 05/11/21 05:05 Cleocin 600 Mg/50 Ml D5w IV 05/12/21 16:29 75 mls/hr Q8HR MAULIK Administration CEFTRIAXONE/D5W 1 GM PREMIX 1 gm in 50 mls @ 75 mls/hr 05/09/21 16:30 05/11 08:59 Rocephin 1 Gm/50 Ml D5w IV 05/12/21 16:29 75 mls/hr DAILY MAULIK Administration Insulin Human Regular 0 unit 05/08/21 11:24 05/11/21 05:58 Insulin Regular, Human 100 Unit/Ml (3ml) Vial SUBCUT 3 unit PRN PRN Administration Hyperglycemia Protocol Levothyroxine Sodium 25 mcg 05/08/21 08:00 05/11/21 05:42 Levothyroxine Sodium 25 Mcg Tablet PO 25 mcg QDAC MAULIK Administration Omeprazole 20 mg 05/08/21 08:00 05/11/21 05:43 Omeprazole 20 Mg Capsule.Dr PO 20 mg BIDAC MAULIK Administration Ondansetron HCl 4 mg 05/07/21 17:56 Ondansetron Hcl/Pf 4 Mg/2 Ml Sdv IVP Q6H PRN Nausea / Vomiting Rivaroxaban 20 mg 05/08/21 09:00 05/11/21 08:59 Rivaroxaban 10 Mg Tablet PO 20 mg DAILY MAULIK Administration Rosuvastatin Calcium 10 mg 05/07/21 18:00 05/11/21 08:58 Rosuvastatin Calcium 10 Mg Tablet PO 10 mg DAILY MAULIK Administration Sodium Chloride 1 syr 05/08/21 13:00 05/11/21 05:05 0.9% Sodium Chloride 10 Ml Disp.Syrin IVF 1 syr Q8HR MAULIK Administration Discontinued Medications Generic Name Dose Route Start Last Admin Trade Name Freq PRN Reason Stop Dose Admin Dexamethasone Sodium Phosphate 4 mg 05/07/21 16:15 05/07/21 17:05 Dexamethasone Sod Phos 4 Mg/Ml Inj IVP 05/07/21 16:16 4 mg ONCE ONE Administration Dexamethasone Sodium Phosphate 4 mg 05/07/21 21:00 05/09/21 12:08 Dexamethasone Sod Phos 4 Mg/Ml Inj IVP 05/09/21 15:00 4 mg Q8HR MAULIK Administration Enoxaparin Sodium 60 mg 05/07/21 15:42 05/07/21 15:53 Enoxaparin Sodium 60 Mg/0.6 Ml Syr SUBCUT 05/07/21 15:43 60 mg ONCE STA Administration Clindamycin Phosphate 600 mg in 50 mls @ 75 mls/hr 05/07/21 16:15 05/07/21 17:05 Cleocin 600 Mg/50 Ml D5w IV 05/07/21 16:54 75 mls/hr ONCE ONE Administration Clindamycin Phosphate 300 mg in 50 mls @ 75 mls/hr 05/07/21 21:00 05/08/21 05:40 Cleocin 300 Mg/50 Ml D5w IV 05/10/21 20:59 75 mls/hr Q6HR MAULIK Administration Sodium Chloride 1,000 mls @ 125 mls/hr 05/07/21 17:48 05/07/21 20:43 Sodium Chloride IV 05/08/21 01:47 125 mls/hr ONCE ONE Administration Clindamycin Phosphate 600 mg in 50 mls @ 75 mls/hr 05/08/21 08:00 05/09/21 15:37 Cleocin 600 Mg/50 Ml D5w IV 05/11/21 07:59 Not Given Q8HR MAULIK Levothyroxine Sodium 25 mcg 05/07/21 18:00 05/07/21 19:31 Levothyroxine Sodium 25 Mcg Tablet PO 25 mcg DAILY MAULIK Administration Omeprazole 20 mg 05/07/21 21:00 05/07/21 20:41 Omeprazole 20 Mg Capsule.Dr PO 20 mg BID MAULIK Administration Potassium Chloride 20 meq 05/07/21 18:00 05/07/21 19:31 Potassium Chloride 20 Meq Tab PO 20 meq DAILY MAULIK Administration Potassium Chloride 20 meq 05/08/21 08:30 05/08/21 08:26 Potassium Chloride 20 Meq Tab PO 20 meq DAILYWM MAULIK Administration Sodium Chloride 1 syr 05/07/21 12:55 05/07/21 17:05 0.9% Sodium Chloride 10 Ml Disp.Syrin IVF 1 syr PRN PRN Administration To flush IV Vital Signs: Temp Pulse Resp BP Pulse Ox 05/07/21 11:16 99.2 F 105 H 20 131/72 93 L OMAR Risk Score OMAR Risk Score: Risk Score Odds of by 30D 0 0.1 (0.1-0.2) 1 0.3 (0.2-0.3) 2 0.4 (0.3-0.5) 3 0.7 (0.6-0.9) 4 1.2 (1.0-1.5) 5 2.2 (1.9-2.6) 6 3.0 (2.5-3.6) 7 4.8 (3.8-6.1) Discharge Plan Discharge Patient Disposition: ADMITTED INPATIENT Discharge Problem: Cellulitis of right thigh, Acute alteration in mental status, Type II diabetes mellitus, Pulmonary embolism ED Provider: TRICE ELLIS Condition: Good Physician Progress Note: []
--- NOTE | 2021-05-11 10:08 | PCM.PROG ---
Date Seen by Provider: 05/09/21 Time Seen by Provider: 14:30 Subjective: Patient resting in bed in her room, Feeling much better Objective: Vitals: T=98.6 F, P=62, R=16, CO=915/77, SPO2=99 HEENT: [] Neck: [] Lungs: CTA-AF CVS: HR- RRR Abdomen: Soft non tender Extremities: Non tender; RT thigh erythema or and tenderess- persist but improved Neurological: AAOx3 No Focal deficit Skin: W/D Lab/Tests/Diagnostic Imaging: [] (1) Cellulitis of right thigh: Status: Acute Code(s): L03.115 - Cellulitis of right lower limb SNOMED Code(s): 54499635096950039 (2) Acute UTI: Status: Acute Code(s): N39.0 - Urinary tract infection, site not specified SNOMED Code(s): 173313072 (3) Dehydration: Status: Acute Code(s): E86.0 - Dehydration SNOMED Code(s): 35993943 Plan:
[2021-05-11] MEDS: NORCO 5-325 PO PRN (20:11)
[2021-05-12] MEDS: NORCO 5-325 PO PRN ×3 (02:04→23:20)
[2021-05-12] MEDS: CLEOCIN 600 MG/50 ML D5W 600 MG/50 ML BAG IV SCH ×3 (05:41→20:07)
[2021-05-12] MEDS: SYNTHROID PO SCH (05:41)
[2021-05-12] MEDS: PRILOSEC PO SCH ×2 (05:42→17:06)
[2021-05-12] MEDS: ROCEPHIN 1 GM/50 ML D5W 1 GM/50 ML BAG IV SCH (09:20)
[2021-05-12] MEDS: CRESTOR PO SCH (09:37)
[2021-05-12] MEDS: XARELTO PO SCH (09:37)
[2021-05-12] MEDS: NEURONTIN PO SCH ×3 (09:39→20:08)
[2021-05-12] MEDS: DECADRON IVP SCH ×2 (09:40→20:07)
--- NOTE | 2021-05-12 10:31 | PCM.PROG ---
Date Seen by Provider: 05/12/20 Time Seen by Provider: 11:00 Subjective: Patient Resting in room visiting with her brother. Continue present therapy. Discussed with patient and her brother Recommended Physical therapy Brother confided that he is concerned with home living condition, safety issues (states 2 room including Bathroom that floor is unsafe. Apparently, there are repairs being completed on another house attempting to prepare to move Staff states does not meet Criteria of swing bed status for PT Due to weakness, Patient would greatly benefit from PT and gait therapy, Objective: Vitals: T=97.3 F, P=61, R=18, IA=988/77, IWF5=102 HEENT: Clear Neck: supple Lungs: CTA-AF CVS: HR rrr Abdomen: Soft non tender Extremities: Rt THigh non inflamed or tendner Neurological: Cognition much improved. AAOX3 Skin: [] Lab/Tests/Diagnostic Imaging: [] (1) Cellulitis of right thigh: Status: Acute Code(s): L03.115 - Cellulitis of right lower limb SNOMED Code(s): 91997149073816906 (2) Acute UTI: Status: Acute Code(s): N39.0 - Urinary tract infection, site not specified SNOMED Code(s): 687045694 (3) Dehydration: Status: Acute Code(s): E86.0 - Dehydration SNOMED Code(s): 80410357 Plan: Continue present tx Discharge planning
--- NOTE | 2021-05-12 10:40 | PCM.PROG ---
Date Seen by Provider: 04/14/21 Time Seen by Provider: 10:00 Subjective: Improved. Talking about wanting to go home to be with her family. Willing to take physical threrapy. Objective: Vitals: T=97.3 F, P=61, R=18, KC=382/77, PBS2=503 HEENT:Clear Neck: [] Lungs:CTA CVS: HRRRR Abdomen: [] Extremities: [] Neurological: Is AAO X3 No FOcal Deficit Skin: RT Thigh no longer inflamed or tender Lab/Tests/Diagnostic Imaging: [] (1) Cellulitis of right thigh: Status: Acute Code(s): L03.115 - Cellulitis of right lower limb SNOMED Code(s): 65273344006103875 (2) Acute UTI: Status: Acute Code(s): N39.0 - Urinary tract infection, site not specified SNOMED Code(s): 991752710 (3) Dehydration: Status: Acute Code(s): E86.0 - Dehydration SNOMED Code(s): 95491440 Plan: Switch to oral meds after IV treatment today Otherwise CPT
[2021-05-12] MEDS: HUMULIN R SUBCUT PRN ×2 (17:06→20:55)
[2021-05-13] MEDS: CLEOCIN 600 MG/50 ML D5W 600 MG/50 ML BAG IV SCH ×3 (05:01→20:23)
[2021-05-13] MEDS: PRILOSEC PO SCH ×2 (05:33→16:00)
[2021-05-13] MEDS: SYNTHROID PO SCH (05:33)
[2021-05-13] MEDS: NEURONTIN PO SCH ×3 (08:26→20:21)
[2021-05-13] MEDS: XARELTO PO SCH (08:27)
[2021-05-13] MEDS: ROCEPHIN 1 GM/50 ML D5W 1 GM/50 ML BAG IV SCH (08:32)
[2021-05-13] MEDS: DECADRON IVP SCH ×2 (08:32→21:47)
[2021-05-13] MEDS: CRESTOR PO SCH (08:32)
--- NOTE | 2021-05-13 08:40 | PCM.PROG ---
Date Seen by Provider: 05/13/21 Time Seen by Provider: 08:30 Subjective: Admitted 05/07/21 for cellulitis right thigh. Patient would like to stay today and be discharged tomorrow. Objective: Vitals: T=96.8 F, P=66, R=16, GL=059/74, SPO2=98 HEENT: [WNL] Neck: [WNL] Lungs: [Clear] CVS: [RRR] Abdomen: [soft, no pain] Extremities: [Intact. Cellulitis right thigh improved.] Neurological: [Intact, clear thinking.] Skin: [WNL for age with resolving cellulitis.] Lab/Tests/Diagnostic Imaging: [No new studies indicated.] (1) Cellulitis of right thigh: Status: Acute Code(s): L03.115 - Cellulitis of right lower limb SNOMED Code(s): 35097931800123545 Assessment: Improved on IV abx. (2) Acute UTI: Status: Acute Code(s): N39.0 - Urinary tract infection, site not specified SNOMED Code(s): 848414600 Assessment: No symptoms. A coffman-sensitive E. coli that should be essentially resolved with the abx used to treat the cellulitis. (3) Dehydration: Status: Acute Code(s): E86.0 - Dehydration SNOMED Code(s): 78118305 Assessment: Resolved. Good appetite and hydration status. Plan: Continue IV abx today with planned d/c tomorrow on oral abx.
[2021-05-13] MEDS: HUMULIN R SUBCUT PRN ×3 (11:53→20:22)
[2021-05-14 05:14] LABS: BASOPHILS % (AUTO) 0.2 % (0.0-3.0); EOSINOPHILS % (AUTO) 0.2 % (0.0-7.0); HEMATOCRIT 42.9 % (37.0-47.0); HEMOGLOBIN 14.3 g/dl (12.0-16.0); IMMATURE GRANULOCYTE # (AUTO) 0.1 (0.0-1.0); IMMATURE GRANULOCYTE % (AUTO) 0.9 % (0.0-5.0); LYMPHOCYTES # (AUTO) 2.4 K/uL (0.60-3.4); LYMPHOCYTES % (AUTO) 22.6 (10.0-50.0); MEAN CORPUSCULAR HEMOGLOBIN 29.8 pg (27.0-31.0); MEAN CORPUSCULAR HGB CONC 33.3 (31.8-35.4); MEAN CORPUSCULAR VOLUME 89.4 fl (81.0-99.0); MONOCYTES # (AUTO) 0.6 K/uL (0.4-2.0); MONOCYTES % (AUTO) 5.6 (0-10); NEUTROPHILS # (AUTO) 7.6 K/ul (2.0-6.9); NEUTROPHILS % (AUTO) 70.5 % (42.2-75.2); PLATELET COUNT 406 10^3/uL (140-440); RDW COEFFICIENT OF VARIATION 14.6 % (11.6-14.8); WHITE BLOOD COUNT 10.81 K/ul (4.6-10.2)
[2021-05-14 05:28] LABS: ALANINE AMINOTRANSFERASE 16.4 U/L (0-35); ALBUMIN 4.48 g/dL (3.5-5.0); ASPARTATE AMINO TRANSFERASE 14.7 U/L (14-36); BILIRUBIN,TOTAL 0.46 mg/dL (0.2-1.3); BLOOD UREA NITROGEN 19.5 mg/dL (7-17); CALCIUM 9.46 mg/dL (8.4-10.2); CARBON DIOXIDE 28.4 mmol/L (22-30.0); CHLORIDE 95.4 mmol/L (98-107); CREATININE 0.6 mg/dL (0.60-1.30); GLUCOSE 146.3 mg/dL (74-106); POTASSIUM 4.77 mmol/L (3.5-5.1); SODIUM 132.2 mmol/L (134.5-145); TOTAL PROTEIN 7.79 g/dL (6.3-8.2)
[2021-05-14] MEDS: SYNTHROID PO SCH (05:46)
[2021-05-14] MEDS: CLEOCIN 600 MG/50 ML D5W 600 MG/50 ML BAG IV SCH (05:46)
[2021-05-14] MEDS: PRILOSEC PO SCH (05:46)
[2021-05-14] MEDS: HUMULIN R SUBCUT PRN (05:47)
[2021-05-14] MEDS: NORCO 5-325 PO PRN (06:12)
[2021-05-14] MEDS: NEURONTIN PO SCH (08:59)
[2021-05-14] MEDS: CRESTOR PO SCH (08:59)
[2021-05-14] MEDS: XARELTO PO SCH (09:00)
[2021-05-14] MEDS: DECADRON IVP SCH (09:00)
[2021-05-14 13:51] VITALS: BP 119/70; TEMP 98
--- NOTE | 2021-05-23 12:47 | PCM.DC ---
Final Diagnosis: (1) Cellulitis of right thigh: Status: Acute Code(s): L03.115 - Cellulitis of right lower limb SNOMED Code(s): 98265010614121162 (2) Acute UTI: Status: Acute Code(s): N39.0 - Urinary tract infection, site not specified SNOMED Code(s): 024713691 (3) Dehydration: Status: Acute Code(s): E86.0 - Dehydration SNOMED Code(s): 38472051 Medications at Discharge: Ambulatory Orders Medication Instructions Recorded omeprazole 20 mg capsule,delayed 20 mg PO BID 02/29/20 release nicotine 10 mg inhalation 1 inh INHALATION 4-6XD PRN #168 ea 11/05/20 cartridge (Nicotrol) food supplemt, lactose-reduced 1 ea PO BID #5688 ml 12/04/20 (Ensure) metformin 500 mg tablet 500 mg PO BID #60 tab 12/18/20 blood sugar diagnostic (Blood #50 ea 12/19/20 Glucose Test) blood-glucose meter #1 ea 12/19/20 levothyroxine 25 mcg tablet 25 mcg PO QDAY #60 tab 12/23/20 ibuprofen 600 mg tablet 600 mg PO Q8H PRN #90 tab 01/22/21 rosuvastatin 10 mg tablet 10 mg PO QDAY #30 tab 01/22/21 comp.stocking,knee,long,medium #12 ea 02/26/21 gabapentin 100 mg capsule 200 mg PO TID #180 cap 05/02/21 cephalexin 500 mg capsule 500 mg PO BID #6 cap 05/14/21 rivaroxaban 1 mg/mL oral 20 mg (20 mL) PO DAILY #30 ml 05/14/21 suspension (Xarelto)
--- NOTE | 2021-05-23 16:03 | PCM.PROG ---
Date Seen by Provider: 05/14/21 Time Seen by Provider: 01:00 Subjective: Patient feeling better. Denies urinary symptoms. Getting stronger. Tolerating PO. Objective: Vitals: T=98.0 F, P=87, R=14, EQ=768/70, SPO2=92 Remains afebrile. NAD. HEENT: [] Neck: [] Lungs: [] CVS: [] Abdomen: []Nontender. Soft. No CVA tenderness. Extremities: []Thigh erythema much improved. Area nontender and without fluctuance or induration. Neurological: [] Skin: [] Lab/Tests/Diagnostic Imaging: [] (1) Cellulitis of right thigh: Status: Acute Code(s): L03.115 - Cellulitis of right lower limb SNOMED Code(s): 92994985674799606 (2) Acute UTI: Status: Acute Code(s): N39.0 - Urinary tract infection, site not specified SNOMED Code(s): 936745388 (3) Dehydration: Status: Acute Code(s): E86.0 - Dehydration SNOMED Code(s): 93929993 Assessment: Patient steadily improving. Plan: Discharge on PO antibiotics.
--- NOTE | 2021-05-27 15:04 | PCM.PROG ---
Date Seen by Provider: 05/10/21 Time Seen by Provider: 10:00 Objective: Vitals: T=98.0 F, P=87, R=14, ML=853/70, SPO2=92 Appears comfortable. Alert. Conversant. Appropriate HEENT: [] Neck: [] Lungs: [] CVS: [] Abdomen: []Soft, nontender without CVA tenderness. Extremities: []Erythema of right thigh decreasing. No fluctuance or drainage. Neurological: [] Skin: [] Lab/Tests/Diagnostic Imaging: [] (1) Cellulitis of right thigh: Status: Acute Code(s): L03.115 - Cellulitis of right lower limb SNOMED Code(s): 45814928651234664 (2) Acute UTI: Status: Acute Code(s): N39.0 - Urinary tract infection, site not specified SNOMED Code(s): 857630610 (3) Dehydration: Status: Acute Code(s): E86.0 - Dehydration SNOMED Code(s): 61998878 Plan: Patient improving. Continue present management.
--- NOTE | 2021-05-27 15:16 | PCM.DC ---
Final Diagnosis: altered mental status cellulitis right thigh acute urinary tract infection Physical Exam Appearance: Well-appearing, No pain distress and Thin Ill-appearing: None Pain Distress: None Eyes: CARRIE, EOMI and Conjunctiva clear ENT: Nose normal and Oropharynx normal Neck: Supple Respiratory: Airway patent, Breath sounds clear and Breath sounds equal Cardiovascular: RRR, No rub and No murmur GI/: Soft, Nontender, No masses and Bowel sounds normal Musculoskeletal: No edema, No calf tenderness and Other (No edema. Right thigh erythema resolved.) Skin: Warm, Dry and Normal color Neurological: Sensation intact, Motor intact, Cranial nerves intact, Alert and Oriented Psychiatric: Affect appropriate and Mood appropriate (1) Cellulitis of right thigh: Status: Acute Code(s): L03.115 - Cellulitis of right lower limb SNOMED Code(s): 28193258961626111 (2) Acute UTI: Status: Acute Code(s): N39.0 - Urinary tract infection, site not specified SNOMED Code(s): 607603061 (3) Dehydration: Status: Acute Code(s): E86.0 - Dehydration SNOMED Code(s): 29520654 Reason for Hospitalization: Thigh cellulitis, altered mental status Prognosis/Condition at Discharge: Condition was good. Medications at Discharge: Ambulatory Orders Medication Instructions Recorded omeprazole 20 mg capsule,delayed 20 mg PO BID 02/29/20 release nicotine 10 mg inhalation 1 inh INHALATION 4-6XD PRN #168 ea 11/05/20 cartridge (Nicotrol) food supplemt, lactose-reduced 1 ea PO BID #5688 ml 12/04/20 (Ensure) metformin 500 mg tablet 500 mg PO BID #60 tab 12/18/20 blood sugar diagnostic (Blood #50 ea 12/19/20 Glucose Test) blood-glucose meter #1 ea 12/19/20 levothyroxine 25 mcg tablet 25 mcg PO QDAY #60 tab 12/23/20 ibuprofen 600 mg tablet 600 mg PO Q8H PRN #90 tab 01/22/21 rosuvastatin 10 mg tablet 10 mg PO QDAY #30 tab 01/22/21 comp.stocking,knee,long,medium #12 ea 02/26/21 gabapentin 100 mg capsule 200 mg PO TID #180 cap 05/02/21 cephalexin 500 mg capsule 500 mg PO BID #6 cap 05/14/21 rivaroxaban 1 mg/mL oral 20 mg (20 mL) PO DAILY #30 ml 05/14/21 suspension (Xarelto) Follow-ups: Follow up with your primary care provider within one week. Hospital Course: Patient received IV antitiobics for thigh cellulitis and acute urinary tract infection. Plan: Continue cephalexin as directed. Continue all previous medications.
== END 2021-05-14 15:26 | disposition home or self-care (01) | DRG 602 ==
LOC: ED 11:15 → MEDSURG A 17:52
PROVIDERS: ADMIT Emergency Medicine; ATTEND Emergency Medicine